=== PATIENT | male | born 1985 | race Caucasian/White ===

== ENCOUNTER 2017-09-14 13:50 | Emergency (ER) | payer MEDICAID ==
[~2017-09-14] VITALS: Ht 165.1 cm; Wt 81.6 kg
[2017-09-14 14:06] VITALS: BP_SYST 126
--- NOTE | 2017-09-14 14:38 | NUR ---
Patient to ER bed 02 to gown for evaluation. Side rails up. Report given to Fernanda.
--- NOTE | 2017-09-14 14:40 | NUR ---
Pt AAOx4 ambulated into ED c/o burning 10/10 pain to R palm s/p touching a hot engine while working on a car. Redness and swelling present to R hand. No active bleeding present. No other injuries/complaints per pt/noted. Will continue to monitor.
--- NOTE | 2017-09-14 14:42 | NUR ---
MSE completed by myself.
[2017-09-14] MEDS ORDERED: MORPHINE SULFATE 10 MG/ML VIAL IM ONE (14:45)
[2017-09-14] MEDS ORDERED: BACITRACIN 1 GM OINT TP ONE ×2 (14:45→15:13)
[2017-09-14] MEDS ORDERED: DIPH-TET-PERTUS Vaccine 0.5 ML VIAL (ADACEL) I.M. ONE (14:45)
[2017-09-14] MEDS ORDERED: DIPHENHYDRAMINE INJ 50 MG/ML VIAL IM ONE (14:45)
--- NOTE | 2017-09-14 14:52 | NUR ---
Saline soaked gauze placed on R palm for 10 minutes. Pt states he would like a cold pack, pain 10/. Ice pack provided.
[2017-09-14] MEDS ORDERED: CEPHALEXIN 500 MG CAPSULE PO ONE (15:00)
--- NOTE | 2017-09-14 15:15 | NUR ---
Medication administered. Pt tolerated well. No adverse reactions noted.
[2017-09-14 15:33] VITALS: BP_SYST 131
--- NOTE | 2017-09-14 15:33 | NUR ---
Patient given written and verbal discharge instructions and verbalizes understanding. ER Yancy [employer] discussed with patient the results and treatment provided. Patient in stable condition. ID arm band removed. Rx of Bacitracin, Keflex, Hobbs, Motrin given. Patient educated on pain management and to follow up with PMD. Pain Scale 0. Opportunity for questions provided and answered.
== END 2017-09-14 15:33 | disposition home or self-care (01) ==
LOC: SED 13:50
DX: T23.151A Burn of first degree of right palm, initial encounter (principal); T31.0 Burns involving less than 10% of body surface; X19.XXXA Contact with other heat and hot substances, initial encounter; Y93.89 Activity, other specified; Y92.89 Other specified places as the place of occurrence of the external cause; Y99.8 Other external cause status
CPT/HCPCS: 16000; 90471; 90715; 96372; 99284; J1200; J2270

== ENCOUNTER 2021-03-26 13:15 | Emergency (ER) | payer BC, MEDICAID ==
[~2021-03-26] VITALS: Ht 167.6 cm; Wt 77.1 kg
[2021-03-26 13:25] VITALS: BP_SYST 136
--- NOTE | 2021-03-26 13:33 | NUR ---
Patient to ER bed 01 to gown for evaluation. Side rails up.
--- NOTE | 2021-03-26 14:00 | NUR ---
PT BIB SISTER C/O PAIN RADIATING FROM RIGHT HIP TO RIGHT FOOT, STATES POSSIBLE SCIATICA. PT IS HAVING CONSTANT PAIN UNRELIEVED BY OTC MEDS. PT IS AAOX4, V/S STABLE
--- NOTE | 2021-03-26 14:30 | NUR ---
ER DR. GIMENEZ AT THE BEDSIDE EXAMINING PT
[2021-03-26] MEDS: DIPHENHYDRAMINE INJ 50 MG/ML VIAL IM ONE (14:48)
[2021-03-26] MEDS: KETOROLAC TROMETHAMINE 60 MG/2 ML VIAL IM ONE (14:49)
[2021-03-26] MEDS: CYCLOBENZAPRINE HCL 10 MG TABLET (FLEXERIL) PO ONE (14:50)
--- NOTE | 2021-03-26 15:10 | NUR ---
PT SLEEPING IN BED, NO S/SX OF DISTRESS, V/S STABLE
[2021-03-26] MEDS: MORPHINE 4 MG INJ. 4 MG/ML VIAL IM ONE (16:10)
[2021-03-26] MEDS ORDERED: SOM350 PO (16:51)
[2021-03-26] MEDS ORDERED: NAPR-1172 PO (16:51)
[2021-03-26] MEDS: fentaNYL CITRATE/PF 100 MCG/2 ML AMP IM ONE (17:28)
--- NOTE | 2021-03-26 19:08 | NUR ---
Care of patient endorsed to ROWDY Dia. Pt currently resting in bed, no acute distress noted.
--- NOTE | 2021-03-26 19:09 | NUR ---
Received endorsement from day shift, AAOX4, breathing spontaneously at room air, not in distress noted, still with right leg and lower back pain 12/17, already discharge since 1700H. Vital signs stable
[2021-03-26 19:40] VITALS: BP_SYST 136
--- NOTE | 2021-03-26 19:45 | NUR ---
Patient given written and verbal discharge instructions and verbalizes understanding. DR. AMMY OLIVEROS MD discussed with patient the results and treatment provided. Patient in stable condition. ID arm band removed. Rx of NAPROXEN given. Patient educated on pain management and to follow up with PMD. Pain Scale 0/10. Opportunity for questions provided and answered. Medication side effect fact sheet provided.
== END 2021-03-26 19:40 | disposition home or self-care (01) ==
LOC: SED 13:15
DX: M54.31 Sciatica, right side (principal); I10 Essential (primary) hypertension; E11.9 Type 2 diabetes mellitus without complications; Z79.899 Other long term (current) drug therapy
CPT/HCPCS: 96372; 99284; J1200; J1885; J2270; J3010